=== PATIENT | male | born 1995 | race Caucasian/White ===

== ENCOUNTER 2019-11-30 17:51 | Emergency (ER) | payer OTHER ==
[~2019-11-30] VITALS: Ht 172.7 cm; Wt 90.7 kg
[2019-11-30 18:27] LABS: ABSOLUTE NEUTROPHILS 13.3 thou/uL (1.4-8.2); BASOPHILS 0.5 % (0.0-2.0); EOSINOPHILS 0.1 % (0.0-3.0); HEMATOCRIT 51.9 % (42.0-52.0); HEMOGLOBIN 17.9 gm/dL (14.0-18.0); LYMPHOCYTES 12.2 % (24.0-44.0); MCHC 34.5 g/dL (28.0-37.0); MCV 89.9 fL (80.0-100.0); MONOCYTES 5.5 % (1.0-8.0); PLATELET COUNT 341 thou/uL (150-400); POLYS 81.7 % (36.0-66.0); RBC 5.77 mil/uL (4.50-6.00); RDW 13.2 % (10.5-14.5); WBC 16.2 thou/uL (4.0-11.0)
[2019-11-30 18:34] LABS: URINE BILIRUBIN NEGATIVE (Negative); URINE BLOOD 1+ (Negative); URINE CLARITY CLEAR; URINE COLOR YELLOW; URINE GLUCOSE-RANDOM* NEGATIVE (Negative); URINE KETONES NEGATIVE (Negative); URINE LEUKOCYTES-REFLEX NEGATIVE (Negative); URINE NITRITE-REFLEX NEGATIVE (Negative); URINE PROTEIN (DIPSTICK) 3+ (Negative); URINE UROBILINOGEN 0.2 E.U./dl (0.2-1.0)
[2019-11-30 18:35] LABS: CALCIUM 9.8 mg/dL (8.5-10.1); CREATININE 2.4 mg/dL (0.7-1.3); POTASSIUM 3.2 mmol/L (3.5-5.1)
[2019-11-30 18:51] LABS: ALBUMIN 3.7 g/dL (3.4-5.0); DIRECT BILIRUBIN 0.2 mg/dL (<0.1-0.2); TOTAL PROTEIN 7.9 g/dL (6.4-8.2)
[2019-11-30 19:00] LABS: CASTS None Seen /LPF (None Seen); SQUAMOUS 0-3 Few /LPF (0-3); URINE RBC 0-2 Rare /HPF (0-2); URINE WBC-REFLEX 0-5 Rare /HPF (0-5)
[2019-11-30 19:01] LABS: BACTERIA-REFLEX None Seen /HPF (None Seen); CRYSTALS None Seen /LPF (None Seen)
[2019-11-30 19:24] LABS: AMP/METHAMP Negative (Negative); BARBITURATES Negative (Negative); BENZODIAZEPINES Negative (Negative); COCAINE Negative (Negative); METHADONE Negative (Negative); OPIATES Negative (Negative); PCP Negative (Negative)
[2019-11-30 19:28] LABS: APTT 28.5 Seconds (24.5-32.8); PROTIME 10.6 Seconds (9.3-11.4)
[2019-11-30 19:31] LABS: MAGNESIUM 1.8 mg/dL (1.8-2.4); TROPONIN-I <0.06 ng/mL (<0.06)
[2019-11-30 22:19] VITALS: BP 183/126
--- NOTE | 2019-12-01 09:40 | EKG ---
[facility] [place] [address] ELECTROCARDIOGRAM REPORT Name: ELISA LAMB Room #: DEP [facility]#: [id number] Admission: 11/30/19 Attend Phys: Discharge: 11/30/19 Date of : [birth year] Report #: [id number] THIS REPORT FOR: cc: LAYNE - [facility] family physician/PCP LAYNE - [facility] family physician/PCP Jose Elizalde MD [facility] THIS REPORT FOR: //name// [facility] ED Test Date: 2019-11-30 Test Time: 19:45:48 Pat Name: ELISA LAMB Department: Room: Gender: Receiver: [facility] : 1995 Requested By: Omkar Rogers Order Number: [id number] MD: Jose Elizalde Measurements Intervals [place] Rate: 70 P: 46 ID: [id number] QRS: 47 QRSD: 87 T: 31 QT: 379 QTc: 409 Interpretive Statements Sinus rhythm RSR' in V1 or V2, right VCD No previous ECG available for comparison Electronically Signed On 12-01-2019 9:39:25 CDT by Jose Elizalde [email or web address] <ELECTRONICALLY SIGNED> By: Jose Elizalde MD, FACC 12/01/19 0939 1945 44 Jose Elizalde MD, [facility] /EPI
== END 2019-11-30 22:25 | disposition short-term general hospital (02) ==
LOC: ER 17:51
PROVIDERS: Emergency Medicine; Physician Assistant
DX: I63.542 Cerebral infarction due to unspecified occlusion or stenosis of left cerebellar artery (principal); I10 Essential (primary) hypertension; N28.9 Disorder of kidney and ureter, unspecified; R42 Dizziness and giddiness; R11.2 Nausea with vomiting, unspecified; Z91.19 Patient's noncompliance with other medical treatment and regimen; F17.210 Nicotine dependence, cigarettes, uncomplicated